=== PATIENT | female | born 1985 | race Caucasian/White ===

== ENCOUNTER → 2017-04-03 | Outpatient (CLI) | payer OTHER ==
[~2017-04-03] MED LIST: MISC-696; MTR600X PO; PRENTAB26 PO
[2017-04-03 13:09] LABS: URINE APPEARANCE CLEAR (CLEAR); URINE BILIRUBIN NEG (NEG); URINE COLOR YELLOW; URINE EPITHELIAL CELL AUTO >30 /lpf (0-5); URINE NITRITE NEG (NEG); URINE SPECIFIC GRAVITY 1.013 (1.000-1.030); UROBILINOGEN NEG (NEG)
[2017-04-03 13:15] LABS: MANUAL MICROSCOPIC REQUIRED? NO; REVIEW REQ? NO
== END | disposition home or self-care (01) ==
LOC: C.LABSPEC 11:20
PROVIDERS: ATTEND Nurse Practitioner Adult Health
DX: R39.9 Unspecified symptoms and signs involving the genitourinary system (principal)

== ENCOUNTER → 2017-04-04 | Outpatient (CLI) | payer OTHER ==
[2017-04-04 18:26] LABS: MANUAL MICROSCOPIC REQUIRED? NO; REVIEW REQ? NO; URINE APPEARANCE CLEAR (CLEAR); URINE BILIRUBIN NEG (NEG); URINE COLOR YELLOW; URINE NITRITE NEG (NEG); URINE SPECIFIC GRAVITY 1.016 (1.000-1.030); UROBILINOGEN NEG (NEG)
== END | disposition home or self-care (01) ==
LOC: C.LAB 17:11
PROVIDERS: ATTEND Nurse Practitioner Adult Health
DX: R39.9 Unspecified symptoms and signs involving the genitourinary system (principal)

== ENCOUNTER → 2017-07-18 | Outpatient (CLI) | payer OTHER ==
--- NOTE | 2017-07-18 12:12 | DIAGNOSTIC IMAGING REPORT ---
CHEST 2 VIEWS ROUTINE CLINICAL HISTORY: Z11.1 Tuberculosis screeningPt had TB vaccine. Needs TB screen. COMPARISON STUDY: No previous studies for comparison. FINDINGS: The bones soft tissues and hemidiaphragms are normal. The cardiomediastinal silhouette is normal. The lungs are clear. The pulmonary vasculature is normal. IMPRESSION: Negative chest. The above report was generated using voice recognition software. It may contain grammatical, syntax or spelling errors. Electronically signed by: Krishan Bell M.D. 07/18/2017 12:11 PM Dictated Date/Time: 07/18/2017 12:11 PM
== END | disposition home or self-care (01) ==
LOC: C.RAD 11:50
PROVIDERS: ATTEND Family Medicine
DX: Z11.1 Encounter for screening for respiratory tuberculosis (principal)

== ENCOUNTER → 2017-12-26 | Outpatient (CLI) | payer OTHER ==
[~2017-12-26] MED LIST changes: -MISC-696; +MISC-836
--- NOTE | 2017-12-26 14:18 | DIAGNOSTIC IMAGING REPORT ---
PA CHEST WITH ABDOMINAL SERIES CLINICAL HISTORY: Pelvic pain. FINDINGS: A PA chest radiograph is compared to study dated 07/18/2017. The cardiomediastinal silhouette is unremarkable. The lungs and pleural spaces are clear. No pneumothorax is seen. The bony thorax is grossly intact. Supine and erect abdominal radiographs are correlated with lumbar spine radiographs dated 05/16/2016. There is a nonobstructed abdominal bowel gas pattern. No evidence of intraperitoneal free air is seen. There are no abnormal abdominal calcifications. A small phlebolith is noted in the left hemipelvis. The lumbosacral spine and bony pelvis appear intact. Sclerotic change is seen in the sacroiliac joints. IMPRESSION: 1. No active disease in the chest. 2. Nonobstructed abdominal bowel gas pattern. Electronically signed by: Marco Márquez M.D. 12/26/2017 2:17 PM Dictated Date/Time: 12/26/2017 2:14 PM
== END | disposition home or self-care (01) ==
LOC: C.RAD1850 13:55
PROVIDERS: ATTEND Family Medicine
DX: R10.2 Pelvic and perineal pain (principal)

== ENCOUNTER 2021-01-03 09:18 | Inpatient (IN) ==
[2021-01-03] MEDS ORDERED: PENICILLIN G POTASSIUM 3 MU in DEXTROSE 5% 100 ML IV PRN (09:39)
[2021-01-03] MEDS ORDERED: OXYTOCIN 30 UNITS/500 ML BAG IV PRN ×3 (09:39→17:17)
[2021-01-03] MEDS ORDERED: LACTATED RINGER'S 1,000 ML IV PRN (09:39)
[2021-01-03] MEDS ORDERED: PENICILLIN G POTASSIUM 6 MU in DEXTROSE 5% 250 ML IV STA (09:39)
[2021-01-03] MEDS ORDERED: ONDANSETRON INJ 2 MG/ML 2 ML VIAL IV PRN ×2 (09:43→15:03)
--- NOTE | 2021-01-03 09:48 | History & Physical Report ---
Date of Service January 03, 2021 Assessment & Plan (1) Uterine contractions at greater than 20 weeks of gestation: 35-year-old -0-0-1 at 40 weeks and 5 days of gestation presenting with regular contractions and cervical change. Vital signs stable afebrile, No medical problems. heart rate reassuring, GBS positive. Plan, admit, monitor, IV fluids, IV penicillin and anticipate vaginal delivery. (2) GBS (group B Streptococcus carrier), +RV culture, currently : History of Present Illness Primary Care Provider: Gini Keller MD Patient is a 35 yo at 40.5 wks who was scheduled for IOL tomorrow Started to have ctxs at 11:30 last night and got closer and more painful this morning. She saw bloody show at 01:30 No LOF FM's Her has been uncomplicated except GBS positive. She denies any medical problems. Allergies Allergy/AdvReac Type Severity Reaction Status Date / Time No Known Allergies Allergy Unverified 04/18/20 15:22 Home Medications Medication Instructions Recorded Confirmed Type cholecalciferol (vitamin D3) 125 mcg PO DAILY 01/03/21 01/03/21 History [Vitamin D3] vit no.[id number] 1 tab PO DAILY 01/03/21 01/03/21 History [ Vitamin] Patient History Surgical History History of hernia repair x 3 Family History Father Hypertension Myocardial infarction Mother Hypertension Denies family history of Ovarian cancer Prostate cancer Breast cancer Social History Smoking Status: Never smoker Hx Alcohol Use: No Hx Substance Use: No Preferred Language: Gambian Communication Ability: Effective Visual Impairment: No Limitations Hearing Ability: Normal marital status: Current Living Situation: Spouse current occupational status: employed and unemployed Feels Safe at Home: Yes Childhood Exposure to Second-Hand Smoke: No Dental Care, Regularly: Yes Physical Activity Frequency: Daily Seatbelt Use: always Sunscreen Use: Yes OB History FT in 2016 [employer] History No h/o STD's, no h/o HSV/ Chlam/ GC Review of Systems All systems reviewed & are unremarkable except as noted in HPI & below Physical Exam Constitutional: WD/WN, vitals as above well developed, well nourished and + acute distress (with contractions only) Gastrointestinal (Abdomen): normal bowel sounds, soft, nontender, no hepatosplenomegaly (gravid) Genitourinary: normal external appearance Manual OB Exam: + cervical dilation 4 cm, + cervical effacement 70% and + station -2 OB Exam Monitor Tracing: + external uterine monitor used and + category I
[2021-01-03] MEDS ORDERED: CALCIUM CARBONATE 500 MG CHEWABLE TAB PO PRN (09:51)
[2021-01-03 10:07] LABS: Hematocrit (blood only) 37.5 % (37-47); Hemoglobin 12.6 g/dL (12.0-16.0); Mean Corpuscular Hemoglobin 31.9 pg (25-34); Mean Corpuscular Hgb Conc 33.6 g/dL (32-36); Mean Corpuscular Volume 94.9 fL (80-100); Platelet Count 343 K/uL (130-400); RDW Coefficient of Variation 13.9 % (11.5-14.5); RDW Standard Deviation 47.8 fL (36.4-46.3); Red Blood Count 3.95 M/uL (4.2-5.4); White Blood Count 9.35 K/uL (4.8-10.8)
--- NOTE | 2021-01-03 13:47 | Obstetrical Progress Note ---
Date of Service January 03, 2021 Assessment & Plan Admission and Anticipated Discharge Date Admission Date: January 03, 2021 Subjective Patient is reevaluated She e more painful ctx and desires epidural for pain VE: 5-6 cm/ 80%/ -2 FHR categ I [place]: ctxs q 2-7 min Plan for epidural for pain and then augment with oxytocin Results & Data ([facility]) Vital Signs (Past 12 Hours) Vital Signs Temp Pulse Resp BP 01/03/21 10:13 72 138/78 01/03/21 09:47 104 H 140/95 01/03/21 09:38 37.3 C 104 H 16 140/95
[2021-01-03] MEDS ORDERED: ePHEDrine sulfate 50 MG/ML AMP ONE (14:07)
[2021-01-03] MEDS ORDERED: SODIUM CHLORIDE 0.9% INJ 10 ML VIAL ONE (14:07)
[2021-01-03] MEDS ORDERED: BUPIVACAINE 0.25% 30 ML VIAL ONE (14:08)
[2021-01-03] MEDS ORDERED: fentaNYL citrate 100 MCG/2 ML VIAL ONE (14:08)
[2021-01-03] MEDS ORDERED: fentaNYL 2MCG/ML ROPIVACAINE 1.25MG/ML 100 ML BAG EPI ONE (14:08)
--- NOTE | 2021-01-03 14:24 | Anesthesiology Consultation ---
Date of Service January 03, 2021 Assessment & Plan Chart Review Chart Review: Acceptable Risk for Surgery, Patient NOT seen in Pre Admission Testing and Acceptable Risk for Labor Epidural Consults Requested none ASA ASA2 Proposed Anesthesia Anesthesia Type: Labor Epidural and CSE Additional Notes covid test negative History Height/Weight Height: 5 ft 6 in Weight: 94.347 kg Allergies Allergy/AdvReac Type Severity Reaction Status Date / Time No Known Allergies Allergy Unverified 04/18/20 15:22 Medications Home Medications Medication Instructions Recorded Confirmed Last Taken cholecalciferol (vitamin D3) 125 mcg PO DAILY 01/03/21 01/03/21 01/02/21 09:00 [Vitamin D3] vit no.[id number] 1 tab PO DAILY 01/03/21 01/03/21 01/02/21 09:00 [ Vitamin] Active Medications Generic Name Dose Route Start Last Admin Trade Name Freq PRN Reason Stop Dose Admin Penicillin G Potassium 3 mu/ 106 mls @ 100 mls/hr 01/03/21 09:39 01/03/21 14:14 Dextrose IV 01/13/21 09:38 100 mls/hr Q4H PRN Administration Give until delivery Lactated Ringer's 1,000 mls @ 150 mls/hr 01/03/21 09:39 01/03/21 13:44 Lr IV 01/05/21 09:38 999 mls/hr .[id number] PRN Infusion L&D Protocol Protocol Exercise / Class Metabolic Activity II 4-5 Yardwork/Stairs/Walk up hill Past Family History Family History Father Hypertension Myocardial infarction Mother Hypertension Denies family history of Ovarian cancer Prostate cancer Breast cancer Past Surgical History Surgical History History of hernia repair x 3 Past Anesthesia History No Hx of Anesthesia Complications and No Family Hx of Anesthesia Complications History of PONV No Hx of PONV and No Hx of Motion Sickness Social History Smoking Status: Never smoker Do You Dip or Chew Tobacco: No Hx Alcohol Use: No Hx Substance Use: No Physical Exam Vital Signs Last Vital Signs Temp 36.8 C 01/03/21 14:00 Pulse 85 01/03/21 14:16 Resp 20 01/03/21 14:00 BP 126/81 05/26/21 13:56 Pulse Ox 97 01/03/21 14:16 Testing Laboratory Results 01/03/21 09:57
[2021-01-03] MEDS ORDERED: NALOXONE HCL 0.4 MG/1 ML VIAL/CARP IV PRN (15:03)
[2021-01-03] MEDS ORDERED: ePHEDrine sulfate 50 MG/ML AMP IV PRN (15:03)
[2021-01-03] MEDS ORDERED: diphenhydrAMINE 50 MG/ML VIAL IV PRN (15:03)
[2021-01-03] MEDS ORDERED: PROMETHAZINE HCL 25 MG in SODIUM CHLORIDE 0.9% 50 ML IV PRN (15:03)
[2021-01-03] MEDS ORDERED: fentaNYL 2MCG/ML ROPIVACAINE 1.25MG/ML 100 ML BAG EPI PRN (15:03)
[2021-01-03] MEDS ORDERED: NALOXONE HCL 1 MG in SODIUM CHLORIDE 0.9% 1000ML 1,000 ML IV PRN (15:03)
--- NOTE | 2021-01-03 15:26 | Obstetrical Progress Note ---
Date of Service January 03, 2021 Assessment & Plan Admission and Anticipated Discharge Date Admission Date: January 03, 2021 Subjective Patient received epidural and comfortable now 2nd dose of PCN was finished VE: 6-7cm/ 80%/ -1, tight bulging bag, AROM'ed clear fluid Continue to monitor closely Results & Data ([facility]) Vital Signs (Past 12 Hours) Vital Signs Temp Pulse Resp BP Pulse Ox 01/03/21 15:23 83 124/74 01/03/21 15:21 80 98 01/03/21 15:20 71 108/59 L 01/03/21 15:18 64 108/57 L 01/03/21 15:16 71 114/57 L 97 01/03/21 15:15 68 119/58 L 01/03/21 15:12 73 132/60 01/03/21 15:11 80 96 01/03/21 15:10 85 122/65 01/03/21 15:08 82 119/63 01/03/21 15:06 78 117/64 98 01/03/21 15:04 121/71 01/03/21 15:02 75 115/72 01/03/21 15:01 82 97 01/03/21 15:00 78 125/67 01/03/21 14:58 96 H 132/72 94 01/03/21 14:56 91 H 142/79 H 96 01/03/21 14:54 82 139/84 01/03/21 14:53 76 152/88 H 01/03/21 14:51 95 H 92 01/03/21 14:48 86 90 01/03/21 14:46 85 96 01/03/21 14:41 86 141/87 H 97 01/03/21 14:36 96 H 97 01/03/21 14:31 82 98 01/03/21 14:26 83 97 01/03/21 14:21 82 96 01/03/21 14:16 85 97 01/03/21 14:11 80 97 01/03/21 14:06 74 98 01/03/21 14:01 81 97 01/03/21 14:00 36.8 C 20 01/03/21 13:56 88 126/81 96 01/03/21 10:13 72 138/78 01/03/21 09:47 104 H 140/95 01/03/21 09:38 37.3 C 104 H 16 140/95
[2021-01-03] MEDS ORDERED: MINERAL OIL 30 ML UDC ONE (16:37)
[2021-01-03] MEDS ORDERED: HYDROCORTISONE ACETATE 25 MG SUPP PR PRN (17:17)
[2021-01-03] MEDS ORDERED: DIPHTHERIA/TETANUS/PERTUSSIS 0.5 ML SYR/VIAL IM ONE (17:17)
[2021-01-03] MEDS ORDERED: MEASLES, MUMPS & RUBELLA VIRUS VIAL SQ ONE (17:17)
[2021-01-03] MEDS ORDERED: SUPERCREAM 0.870% 15 GM JAR EXT PRN (17:17)
[2021-01-03] MEDS ORDERED: bisacodyL 10 MG SUPP PR PRN (17:17)
[2021-01-03] MEDS ORDERED: BENZOCAINE 20% AER SPR 82.5 GM CAN EXT PRN (17:17)
--- NOTE | 2021-01-03 18:40 | Anesthesia Procedure Note ---
Date of Service January 03, 2021 Anesthesia Post Epidural Note Vital Signs Vital Signs: Temp Pulse Resp BP Pulse Ox 36.7 C 111 H 18 127/68 95 01/03/21 17:20 01/03/21 18:35 01/03/21 18:20 01/03/21 18:35 01/03/21 17:26 Notes Mental Status: alert / awake / arousable Nausea / Vomiting: adequately controlled Pain: adequately controlled Airway Patency, RR, SpO2: stable & adequate BP & HR: stable & adequate Hydration State: stable & adequate Neuraxial Anesthesia: was administered and sensory block is resolving Anesthetic Complications: no major complications apparent Epidural: Removed without complications and With tip intact
[2021-01-03] MEDS: IBUPROFEN 600 MG TAB PO PRN (19:55)
[2021-01-03] MEDS: DOCUSATE SODIUM 100 MG CAP PO SCH (21:39)
[2021-01-04] MEDS: IBUPROFEN 600 MG TAB PO PRN ×5 (00:13→20:56)
[2021-01-04] MEDS: ACETAMINOPHEN 325 MG TAB PO PRN ×2 (04:34→11:38)
--- NOTE | 2021-01-04 04:50 | Delivery Summary ---
DATE OF OPERATION: 01/03/2021 TIME: 1651 hours. DETAILS OF DELIVERY: The patient was found to be fully dilated and desired to push. She pushed for about 35 minutes and delivered the head without difficulty. There was a nuchal cord around the neck x1 which was reduced. Posterior which was right arm was also coming with the baby spontaneously. Then anterior ( left ) Shoulders was delivered with minimal traction. Then baby was handed off to the mother where mouth and nose were suctioned. Cord was clamped x2 and cut and cord blood was obtained. Vagina and perineum were checked for lacerations. There was a first-degree clitoral laceration between the upper labia, which was pumping blood. A Molina catheter was inserted to define the urethra, which was 1 cm below the laceration and it was draining clear urine It was sutured with 3-0 Vicryl on an SH needle. [id number] stitches were placed on it and it was hemostatic. and then rest of the vagina was intact except there was a small second-degree perineal laceration at the posterior fourchette, which was repaired with 2-0 Vicryl in a running locked fashion, skin in a subcuticular fashion. Excellent hemostasis was achieved. Placenta was found to be in the vagina, delivered spontaneous as intact and complete. Uterus was explored and found to be empty. Lower segment was cleared of all clots and debris. Fundus was firm. EBL was 300 mL. Mom and baby tolerated the procedure well. Sponge, lap, needle counts were correct x2. Baby was a viable male , Apgars 8/9, weight is 4305 gr. No complications happened and I was present during whole procedure. I attest to the content of the Intraoperative Record and any orders documented therein. Any exceptions are noted below. [facility]
[2021-01-04 06:04] LABS: Hematocrit (blood only) 29.7 % (37-47); Hemoglobin 9.9 g/dL (12.0-16.0); Mean Corpuscular Hemoglobin 31.8 pg (25-34); Mean Corpuscular Hgb Conc 33.3 g/dL (32-36); Mean Corpuscular Volume 95.5 fL (80-100); Mean Platelet Volume 9.8 fL (7.4-10.4); Platelet Count 271 K/uL (130-400); RDW Coefficient of Variation 14.1 % (11.5-14.5); RDW Standard Deviation 48.4 fL (36.4-46.3); Red Blood Count 3.11 M/uL (4.2-5.4); White Blood Count 12.61 K/uL (4.8-10.8)
[2021-01-04] MEDS: PRENATAL VITAMIN 1 TAB PO SCH (08:13)
[2021-01-04] MEDS: DOCUSATE SODIUM 100 MG CAP PO SCH ×2 (08:13→20:55)
--- NOTE | 2021-01-04 09:17 | Obstetrical Progress Note ---
Date of Service January 04, 2021 Subjective Ambulation: ambulating normally Voiding: no voiding problems Passing Gas:: Yes Diet Tolerance:: regular diet Lochia:: Small Feeding Type:: breast feeding Physical Exam Constitutional WD/WN, vitals as above well developed and comfortable no edema neg Garry's abdomen soft tent d/c in AM Results & Data ([facility]) Vital Signs (Past 12 Hours) Vital Signs Temp Pulse Resp BP Pulse Ox 01/04/21 04:30 36.6 C 78 17 109/73 98 01/04/21 00:05 36.8 C 81 16 110/74 98 Laboratory Results Laboratory Results - last 48 hr 01/03/21 01/03/21 01/03/21 09:45 09:45 09:57 WBC 9.35 RBC 3.95 L Hgb 12.6 Hct 37.5 MCV 94.9 MCH 31.9 MCHC 33.6 RDW Std Deviation 47.8 H RDW Coeff of Stephanie 13.9 Plt Count 343 MPV 10.0 COVID-19 Eval Order Covid19 IDNow atMWVC SARS-CoV-2, RNA, NAAT NEGATIVE 01/04/21 05:52 WBC 12.61 H RBC 3.11 L Hgb 9.9 L Hct 29.7 L MCV 95.5 MCH 31.8 MCHC 33.3 RDW Std Deviation 48.4 H RDW Coeff of Stephanie 14.1 Plt Count 271 MPV 9.8 COVID-19 Eval Order SARS-CoV-2, RNA, NAAT
[2021-01-04] MEDS: FERROUS SULFATE 325 MG TAB PO SCH (10:15)
[2021-01-04] MEDS ORDERED: bisacodyL 5 MG TABEC PO SCH (20:00)
[2021-01-05] MEDS: IBUPROFEN 600 MG TAB PO PRN ×2 (03:16→08:08)
[2021-01-05 06:30] LABS: Hematocrit (blood only) 28.6 % (37-47); Hemoglobin 9.4 g/dL (12.0-16.0)
[2021-01-05] MEDS: FERROUS SULFATE 325 MG TAB PO SCH (08:08)
[2021-01-05] MEDS: PRENATAL VITAMIN 1 TAB PO SCH (08:08)
[2021-01-05] MEDS: DOCUSATE SODIUM 100 MG CAP PO SCH (08:11)
--- NOTE | 2021-01-05 09:05 | Obstetrical Progress Note ---
Date of Service January 05, 2021 Assessment & Plan (1) Normal course: PPD #2 pt doing well wishes to be discharged home Subjective Ambulation: ambulating normally Voiding: no voiding problems Passing Gas:: Yes Diet Tolerance:: regular diet Lochia:: Small Feeding Type:: breast feeding Review of Systems All systems reviewed & are unremarkable except as noted in HPI & below Physical Exam Constitutional WD/WN, vitals as above well developed and well nourished Eyes PERRL, conjunctivae normal, anicteric sclerae Neck trachea midline, no thyromegaly Respiratory normal respiratory effort, lungs clear to auscultation Auscultation: no crackles, no rales and no wheezes Cardiovascular RRR, no murmur, no edema Gastrointestinal (Abdomen) normal bowel sounds, soft, nontender, no hepatosplenomegaly Uterus is below umbilicus Musculoskeletal no cyanosis or clubbing, extremities motor strength 5/5 Skin no rashes, warm and dry Neurologic patellar DTR's 2+ bilat, sensation intact Psychiatric A+Ox3, euthymic affect Genitourinary normal external appearance Results & Data ([facility]) Vital Signs (Past 12 Hours) Vital Signs Temp Pulse Resp BP Pulse Ox 01/05/21 07:45 36.8 C 89 16 116/78 97 01/04/21 22:57 36.8 C 85 16 109/69 98
== END 2021-01-05 10:30 | disposition home or self-care (01) | DRG 807 ==
LOC: OPB 09:18 → 4S1 09:19 → 4S2 20:21